=== PATIENT | female | born 1960 | race African-American/Black ===

== ENCOUNTER 2019-02-28 06:46 | Emergency (ER) | payer MEDICAID, MEDICARE ==
[~2019-02-28] VITALS: Ht 165.1 cm; Wt 83.0 kg
[2019-02-28] MEDS ORDERED: TETRACAINE 0.5% OPHTH DROPS 4ML LEFTEYE ONE (09:15)
[2019-02-28] MEDS ORDERED: IBUPROFEN 600MG TABLET PO ONE (09:15)
[2019-02-28 09:29] VITALS: BP 138/78
== END 2019-02-28 09:31 | disposition home or self-care (01) ==
LOC: ER 06:46
DX: S05.02XA Injury of conjunctiva and corneal abrasion without foreign body, left eye, initial encounter (principal); E03.9 Hypothyroidism, unspecified; Z87.891 Personal history of nicotine dependence; Z88.8 Allergy status to other drugs, medicaments and biological substances; X58.XXXA Exposure to other specified factors, initial encounter; Y93.89 Activity, other specified; Y92.89 Other specified places as the place of occurrence of the external cause; Y99.8 Other external cause status
CPT/HCPCS: 99283

== ENCOUNTER 2021-10-29 09:12 | Emergency (ER) | payer MEDICARE ==
[~2021-10-29] VITALS: Ht 157.5 cm; Wt 69.0 kg
[2021-10-29 09:14] VITALS: BP 130/54
[2021-10-29] MEDS ORDERED: TETANUS, DIPHTHERIA, PERTUSSIS VAC/PF 0.5ML (>10YR OLD) IM ONE (10:00)
[2021-10-29] MEDS ORDERED: CEPH500T MT (11:11)
[2021-10-29] MEDS ORDERED: HYDR-4001 MT (11:15)
== END 2021-10-29 11:33 | disposition home or self-care (01) ==
LOC: ER 09:12
DX: S91.342A Puncture wound with foreign body, left foot, initial encounter (principal); E03.9 Hypothyroidism, unspecified; W22.8XXA Striking against or struck by other objects, initial encounter; Y93.89 Activity, other specified; Y92.018 Other place in single-family (private) house as the place of occurrence of the external cause
CPT/HCPCS: 73630; 90471; 90715; 99283

== ENCOUNTER 2022-09-24 11:01 | Emergency (ER) | payer BC, MEDICARE ==
[~2022-09-24] VITALS: Ht 170.2 cm; Wt 78.0 kg
[~2022-09-24 11:01] MED LIST: CEPH500T MT; HYDR-4001 MT
[2022-09-24] MEDS ORDERED: CYCLOBENZAPRINE 10MG TABLET PO ONE (13:30)
[2022-09-24] MEDS ORDERED: KETOROLAC 15MG/ML VIAL IM ONE (13:30)
[2022-09-24 14:05] VITALS: BP 120/58
[2022-09-24] MEDS ORDERED: CYCL10TA21 MT (14:10)
[2022-09-24] MEDS ORDERED: NAPR-681 MT (14:10)
== END 2022-09-24 14:23 | disposition home or self-care (01) ==
LOC: ER 11:01
DX: S39.013S Strain of muscle, fascia and tendon of pelvis, sequela (principal); Z86.39 Personal history of other endocrine, nutritional and metabolic disease; X58.XXXA Exposure to other specified factors, initial encounter; Y93.89 Activity, other specified; Y92.89 Other specified places as the place of occurrence of the external cause; Y99.8 Other external cause status
CPT/HCPCS: 96372; 99283; J1885